=== PATIENT | female | born 1940 | race Caucasian/White ===

== ENCOUNTER 2016-12-23 10:31 | Outpatient (CLI) ==
[2016-12-23 11:42] LABS: ALBUMIN 3.8 g/dL (3.4-5.0); ALBUMIN/GLOBULIN RATIO 1.19; ANION GAP 14.3; BILIRUBIN,TOTAL 0.9 mg/dL (0.00-1.20); BUN/CREATININE RATIO 25.35; CALCIUM 10.1 mg/dL (8.2-10.2); CREATININE 1.42 mg/dL (0.60-1.30); PHOSPHORUS 4.2 mg/dL (2.8-4.1); POTASSIUM 4.3 mmol/L (3.5-5.10)
== END 2016-12-23 10:32 | disposition home or self-care (01) ==
LOC: LAB 10:31
PROVIDERS: ATTEND Nurse Practitioner Family
DX: M80.00XA Age-related osteoporosis with current pathological fracture, unspecified site, initial encounter for fracture (principal); M89.9 Disorder of bone, unspecified
CPT/HCPCS: 36415; 80053; 82306; 83735; 83970; 84100